=== PATIENT | female | born 1975 | race Caucasian/White ===

== ENCOUNTER 2020-01-24 09:22 | Outpatient (CLI) | payer OTHER, SELFPAY ==
--- NOTE | 2020-01-24 11:00 | NEURO_ITS ---
Patient Number: [id number] Impression: # Complains of numbness of lower extremities. History of diabetes myelitis in family. # Normal nerve conduction study except sensory nerve responses of low amplitude. # Needle/EMG exam not requested. # Clinical correlation recommended. Nerve Conduction Studies Anti Sensory Summary Table Stim Site NR Peak (ms) P-T Amp (?V) Site1 Site2 Delta-P (ms) Dist (cm) Mauricio (m/s) Left Sup Fibular Anti Sensory (Ant Lat Mall) 14 cm 3.4 17.2 14 cm Ant Lat Mall 3.4 16.0 47 Right Sup Fibular Anti Sensory (Ant Lat Mall) 14 cm 2.6 5.4 14 cm Ant Lat Mall 2.6 16.0 62 Left Sural Anti Sensory (Lat Mall) Calf 3.6 14.8 Calf Lat Mall 3.6 16.0 44 Right Sural Anti Sensory (Lat Mall) Calf 2.8 8.5 Calf Lat Mall 2.8 16.0 57 Motor Summary Table Stim Site NR Onset (ms) O-P Amp (mV) Site1 Site2 Delta-0 (ms) Dist (cm) Mauricio (m/s) Left Peroneal Motor (Vastus Med) Ankle 3.8 1.4 Popit Ankle 7.9 37.0 47 Popit 11.7 4.0 Right Peroneal Motor (Vastus Med) Ankle 3.3 5.7 Popit Ankle 7.3 37.0 51 Popit 10.6 4.2 Left Tibial Motor (Abd Conde Brev) Ankle 4.1 2.2 Knee Ankle 8.6 40.0 47 Knee 12.7 1.2 Right Tibial Motor (Abd Conde Brev) Ankle 3.9 1.5 Knee Ankle 7.7 41.0 53 Knee 11.6 0.4 F Wave Studies NR F-Lat (ms) L-R F-Lat (ms) Left Peroneal (Mrkrs) (EDB) 48.52 0.05 Right Peroneal (Mrkrs) (EDB) 48.47 0.05 Left Tibial (Mrkrs) (Abd Hallucis) 49.89 0.04 Right Tibial (Mrkrs) (Abd Hallucis) 49.93 0.04 MTDD
== END 2020-01-24 09:23 | disposition home or self-care (01) ==
LOC: ANHNEURO 09:24
PROVIDERS: PCP Internal Medicine; Visit Provider Internal Medicine
DX: R20.0 Anesthesia of skin (principal)
CPT/HCPCS: 95910

== ENCOUNTER 2020-07-16 15:02 | Outpatient (CLI) | payer OTHER, SELFPAY ==
--- NOTE | ~2020-07-16 | MM_ITS ---
EXAMINATION: MM screening bryan BI w lio HISTORY: Screening mammogram TECHNIQUE: Craniocaudal and mediolateral oblique 3-D tomosynthesis images were obtained and synthetic 2-D images were generated. CAD analysis was submitted and interpreted. COMPARISON: 08/22/2018, 01/28/2012 bilateral digital screening mammogram examinations BREAST PARENCHYMAL COMPOSITION: There are scattered areas of fibroglandular density. FINDINGS: At 5 mm opacity is noted in the very posterior mid right breast on MLO view. Diagnostic right mammogr am is recommended, with ultrasound if required. Otherwise there is no evidence of suspicious mass, calcification, or architectural distortion to sugg est malignancy in either breast. There has been no suspicious interval change. IMPRESSION: 1. New 5 mm opacity in posterior mid right breast on MLO view 2. Diagnostic right mammogram is recommended, with ultrasound if required BI-RADS Category 0: Incomplete: Needs additional imaging evaluation. Reviewed, dictated and finalized at location A. NESS GUIDE
== END 2020-07-16 15:03 | disposition home or self-care (01) ==
LOC: ANHIMG 15:05
PROVIDERS: PCP Internal Medicine; Visit Provider Student in an Organized Health Care Education/Training Program
DX: Z12.31 Encounter for screening mammogram for malignant neoplasm of breast (principal); R92.8 Other abnormal and inconclusive findings on diagnostic imaging of breast
CPT/HCPCS: 77063; 77067

== ENCOUNTER 2020-08-11 11:02 | Outpatient (CLI) | payer OTHER, SELFPAY ==
--- NOTE | ~2020-08-11 | MMUS_ITS ---
EXAMINATION: MM diagnostic mammo unilat RT, US breast RT limited HISTORY: Follow-up right breast mass TECHNIQUE: Additional 3-D tomosynthesis images of the right breast were performed and synthetic 2-D i mages were generated. CAD analysis was submitted and interpreted. High resolution right breast ultras ound was performed. COMPARISON: Comparison to multiple prior studies sequentially, with oldest reviewed study dated 08/2011. BREAST PARENCHYMAL COMPOSITION: Breast composed of scattered areas of fibroglandular density. FINDINGS: MAMMOGRAPHIC FINDINGS: There are benign-appearing masses of the right breast. There are no suspicious masses, calcifications or architectural distortion in the right breast to suggest malignancy. ULTRASOUND: Right breast ultrasound: At 10:00 near the nipple there is a 4 mm cyst. IMPRESSION: 1. No evidence for malignancy in the right breast. Benign findings. 2. Routine yearly screening mammogram and regular clinical breast examination are recommended. BI-RADS Category 2: Benign finding(s). Reviewed, dictated and finalized at location A. [employer] ASSIST[employer] IMPRESSION: 1. No evidence for malignancy in the right breast. Benign findings. 2. Routine yearly screening mammogram and regular clinical breast examination a re recommended. BI-RADS Category 2: Benign finding(s).
== END 2020-08-11 11:03 | disposition home or self-care (01) ==
LOC: ANHIMG 11:04
PROVIDERS: PCP Internal Medicine; Visit Provider Student in an Organized Health Care Education/Training Program
DX: R92.8 Other abnormal and inconclusive findings on diagnostic imaging of breast (principal)
CPT/HCPCS: 76642; 77065

== ENCOUNTER → 2020-11-22 06:36 | Outpatient (CLI) | payer OTHER, SELFPAY ==
[2020-11-24 17:04] LABS: SARS-CoV-2 RNA PCR Negative
== END ==
PROVIDERS: PCP Internal Medicine; Visit Provider Internal Medicine
DX: Z20.822 Contact with and (suspected) exposure to COVID-19 (principal)
CPT/HCPCS: C9803; U0003; U0005

== ENCOUNTER → 2020-12-12 10:21 | Outpatient (CLI) | payer OTHER, SELFPAY ==
--- NOTE | ~2020-12-12 | XR_ITS ---
XR lumbar spine min 4V DATE: 12/12/2020 11:06 INDICATION: Paresthesia TECHNIQUE: AP, lateral, coned lateral lumbosacral and bilateral oblique views COMPARISON: None FINDINGS: Schmorl's nodes are identified. Osteopenia. No spondylolysis or spondylolisthesis. There is mild rotatory lumbar dextroscoliosis. The included lower thoracic and lumbar pedicles are intact. No lumbar spine fracture or bone destruct ion. Lumbar levels interspaces appear relatively well preserved. There is minimal degenerative spurri ng of the lumbar spine. The sacroiliac joints are intact. Status post cholecystectomy. IMPRESSION: Mild rotatory dextroscoliosis Minimal degenerative change of the lumbar spine Status post cholecystectomy Reviewed, dictated and finalized at location A.
== END ==
PROVIDERS: PCP Internal Medicine; Visit Provider Chiropractor
DX: R20.2 Paresthesia of skin (principal); Z90.49 Acquired absence of other specified parts of digestive tract; M41.9 Scoliosis, unspecified
CPT/HCPCS: 72110

== ENCOUNTER 2021-09-29 07:32 | Outpatient (CLI) | payer BC, OTHER, SELFPAY ==
--- NOTE | ~2021-09-29 | MMUS_ITS ---
EXAMINATION: MM diagnostic bryan BI w lio, US breast RT limited HISTORY: Palpable right breast lump. TECHNIQUE: Additional 3-D tomosynthesis images of the right breast were performed and synthetic 2-D i mages were generated. CAD analysis was submitted and interpreted. High resolution Limited right breas t ultrasound was performed. COMPARISON: Comparison to multiple prior studies sequentially, with oldest reviewed study dated 08/2011. BREAST PARENCHYMAL COMPOSITION: Breast composed of scattered areas of fibroglandular density FINDINGS: MAMMOGRAPHIC FINDINGS: The left breast is stable without evidence for malignancy. There is a small mass in the mid outer asp ect of the right breast at approximately the 9-10:00 position near the area of palpable concern. ULTRASOUND: Limited right breast ultrasound: At 11:00, 8 cm from the nipple, there is a subtle hypoechoic area wh ich may represent normal heterogeneous fibroglandular tissue rather than a discrete mass. Recommend a ttention to this on follow-up examination. At 8:00, 2 cm from the nipple there is a 3 mm cyst. At 8:00, 6 cm from the nipple there is a hypoecho ic mass measuring 6 mm with some angular margins, no significant posterior features and no significan t internal vascularity. At 9:00, 2 cm from the nipple there is a 5 mm cyst. At 12:00, 6 cm from the n ipple there is a 6 mm cyst. IMPRESSION: 1. Slightly irregular shaped hypoechoic mass of the right breast at 8:00, 6 cm from the nipple. Addit ional findings of the right breast by ultrasound are likely benign. Six-month follow-up ultrasound fo r these masses recommended. 2. Ultrasound-guided right breast biopsy recommended. BI-RADS category 4, suspicious findings. Reviewed, dictated and finalized at location A. IMPRESSION: 1. Slightly irregular shaped hypoechoic mass of the right breast at 8:00, 6 cm from the nipple. Additional findings of the right breast by ultrasound are like ly benign. Six-month follow-up ultrasound for these masses recommended. 2. Ultrasound-guided right breast biopsy recommended. BI-RADS category 4, suspicious findings.
== END 2021-09-29 07:33 | disposition home or self-care (01) ==
PROVIDERS: PCP Internal Medicine; Visit Provider Student in an Organized Health Care Education/Training Program
DX: R92.8 Other abnormal and inconclusive findings on diagnostic imaging of breast (principal)
CPT/HCPCS: 76642; 77062; 77066; G0279

== ENCOUNTER 2021-10-19 00:23 | Day surgery (SDC) | payer BC, OTHER, SELFPAY ==
[2021-10-06 14:43] VITALS: BMI 48.8
[2021-10-19 10:23] VITALS: BP 155/102; PULSE 97; RESP 20; TEMP 37.2; O2SAT 98
--- NOTE | 2021-10-19 10:30 | PM.HPGS ---
History of Present Illness History of Present Illness Consent: Risks, benefits, and alternatives have been discussed and questions answered. Patient agrees to proceed with procedure. Chief complaint: neoplasm screening Narrative: Isabella Charles is a 46 year old female here for screening colonoscopy, she had one ~ 10 years ago because abdominal issues Review of Systems Constitutional: Constitutional: Denies headache(s) and Denies weakness Eyes: Eyes: Denies blurry vision ENT: Reports Normal hearing present, Denies headache(s) and Denies neck pain Cardiovascular: Cardiovascular: Denies chest pain and Denies dyspnea Respiratory: Respiratory: Denies dyspnea Gastrointestinal: Gastrointestinal: Reports no additional gastrointestinal complaints Genitourinary: Genitourinary: Denies dysuria Musculoskeletal: Musculoskeletal: Denies neck pain Integumentary/Breasts: Skin/Breast: Denies dry skin Neurologic: Reports Normal hearing present, Denies headache(s) and Denies weakness Psychiatric: Psychiatric: Denies anxiety Endocrine: Endocrine: Denies change in body appearance Hematologic/Lymphatic: Hematologic/Lymphatic: Denies easy bleeding Allergic/Immunologic: Allergic/Immunologic: Denies urticaria PMFSH Past Medical History Medical History (Updated 10/19/21 @ 10:31 by Javier Caceres MD) Acid reflux Anemia Anxiety Colon cancer screening Depression High cholesterol Hypertension Irritable bowel Neuropathy Vaginal delivery x 3 Surgical History Surgical History History of cholecystectomy History of endoscopy History of tubal ligation Family History Family History Father Diabetes mellitus Hypertension Cerebrovascular accident Mother Diabetes mellitus Family history of blood dyscrasia Family history of gastrointestinal disorder Grandparent Carcinoma of colon Other Family history of malignant neoplasm of ovary Social History Social History Smoking status: Former smoker Tobacco type: cigarettes Second hand tobacco smoke exposure: No Smoking end date: 06/27/08 Alcohol intake: current Drinks per week: 1 Substance use type: marijuana Other substance usage details: medical MJ-vape and cream used for neuropathy (3-4 times a week) Living arrangements: with family Spiritual care concerns: No Meds Home Medications and Allergies Home Medications Medication Instructions Recorded Confirmed Type multivitamin 1 tablet PO DAILY 08/19/20 10/06/21 History atorvastatin 20 mg tablet 20 mg PO DAILY 08/20/21 10/06/21 History duloxetine 60 mg capsule,delayed 60 mg PO DAILY 08/20/21 10/06/21 History release lifitegrast 5 % eye drops in a 1 drp EACH EYE BID 08/20/21 10/06/21 History dropperette lisinopril 20 mg tablet 20 mg PO DAILY 08/20/21 10/06/21 History omeprazole 20 mg PO DAILY 10/06/21 10/06/21 History Allergies Allergy/AdvReac Type Severity Reaction Status Date / Time No Known Allergies Allergy Verified 10/19/21 10:22 Exam Const: General: comfortable and no acute distress HENMT: General nose exam: Normal nares present Eyes: General: appearance normal, both eyes and all related structures Neck: Neck: no JVD Resp: Auscultation: clear to auscultation bilaterally Cardio: Rate: regular rate Rhythm: regular rhythm GI: Inspection: non-distended GI Palp: Yes Soft to palpation Skin: General skin exam: normal color Neuro: General: gait normal Speech: normal speech Extrem: General: normal to inspection Psych: Mental Status: mental status grossly normal Assessment and Plan Assessment and plan (1) Colon cancer screening: Code(s): Z12.11 - Encounter for screening for malignant neoplasm of colon Status: Acute Assessment and Plan: colonoscopy
--- NOTE | 2021-10-19 10:31 | WPDANESEPPF ---
Anes - Initial Pre Proc Eval Procedure: Operation Date: 10/19/21 11:30 Proposed Procedures p Screening Colonoscopy - Javier Caceres MD Date/Time: 10/19/21 10:31 Surgeon: Javier Caceres MD Pre Op Diagnosis: neoplasm screening Patient Data Age: 46 Gender: F Height: 1.6 m Weight: 125 kg Last Vital Signs Temp 37.2 C 10/19/21 10:23 Pulse 97 10/19/21 10:23 Resp 20 10/19/21 10:23 BP 155/102 H 10/19/21 10:23 Pulse Ox 98 10/19/21 10:23 Allergies Allergy/AdvReac Type Severity Reaction Status Date / Time No Known Allergies Allergy Verified 10/19/21 10:22 Home Medications Medication Instructions Recorded Confirmed Type multivitamin 1 tablet PO DAILY 08/19/20 10/06/21 History atorvastatin 20 mg tablet 20 mg PO DAILY 08/20/21 10/06/21 History duloxetine 60 mg capsule,delayed 60 mg PO DAILY 08/20/21 10/06/21 History release lifitegrast 5 % eye drops in a 1 drp EACH EYE BID 08/20/21 10/06/21 History dropperette lisinopril 20 mg tablet 20 mg PO DAILY 08/20/21 10/06/21 History omeprazole 20 mg PO DAILY 10/06/21 10/06/21 History Patient hx anesthesia problems: none Family hx anesthesia problems: none Results Review: All pre-operative results and documents have been reviewed as part of the pre-operative evaluation. [facility] Past Medical History Medical History Acid reflux Anemia Anxiety Colon cancer screening Depression High cholesterol Hypertension Irritable bowel Neuropathy Vaginal delivery x 3 Surgical History Surgical History History of cholecystectomy History of endoscopy History of tubal ligation Family History Family History Father Diabetes mellitus Hypertension Cerebrovascular accident Mother Diabetes mellitus Family history of blood dyscrasia Family history of gastrointestinal disorder Grandparent Carcinoma of colon Other Family history of malignant neoplasm of ovary Social History Social History Smoking status: Former smoker Tobacco type: cigarettes Second hand tobacco smoke exposure: No Smoking end date: 06/27/08 Alcohol intake: current Drinks per week: 1 Substance use type: marijuana Other substance usage details: medical MJ-vape and cream used for neuropathy (3-4 times a week) Living arrangements: with family Spiritual care concerns: No Anes - Eval Final PreProcedure Day of Procedure 10/19/21 10:31 Patient weight: morbidly obese Heart: regular rate and rhythm Lungs: clear to auscultation Airway: Mallampati scale class II Neurological: alert and oriented Last oral intake: >/= 8 hours ASA classification: III Emergent: no Anesthetic plan: proceed Anesthesia type and monitoring: general GIVS and standard monitoring Results Review: All pre-operative results and documents have been reviewed as part of the pre-operative evaluation. Informed Consent: The patient's anesthetic plan and its attendant risks and benefits were discussed with the patient/family/POA. Questions were solicited and answers provided to the satisfaction of the patient/family/POA.
[2021-10-19] MEDS: LACTATED RINGERS 1,000 ML 150 ML IV CONT (10:35)
[2021-10-19 11:00] VITALS: BP 139/96; PULSE 78; RESP 25; O2SAT 99
[2021-10-19 11:10] VITALS: BP 137/93; PULSE 74; RESP 25; O2SAT 99
[2021-10-19 11:20] VITALS: BP 138/87; PULSE 71; RESP 21; O2SAT 100
== END 2021-10-19 11:30 | disposition home or self-care (01) ==
PROVIDERS: PCP Internal Medicine; Visit Provider Internal Medicine Gastroenterology
PROC: 0DJD8ZZ Inspection of Lower Intestinal Tract, Via Natural or Artificial Opening Endoscopic (ICD-10-PCS; CPT 45378; principal; 2021-10-19 11:30)
DX: Z12.11 Encounter for screening for malignant neoplasm of colon (principal); K57.30 Diverticulosis of large intestine without perforation or abscess without bleeding; K64.8 Other hemorrhoids; K21.9 Gastro-esophageal reflux disease without esophagitis; D64.9 Anemia, unspecified; F41.8 Other specified anxiety disorders; E78.00 Pure hypercholesterolemia, unspecified; I10 Essential (primary) hypertension; G62.9 Polyneuropathy, unspecified; K58.8 Other irritable bowel syndrome; Z87.891 Personal history of nicotine dependence; F12.90 Cannabis use, unspecified, uncomplicated; E66.01 Morbid (severe) obesity due to excess calories; Z68.42 Body mass index [BMI] 45.0-49.9, adult
CPT/HCPCS: 45378; J2704; J7120